=== PATIENT | male | born 1975 | race African-American/Black ===

== ENCOUNTER → 2019-04-11 | Emergency (ER) | payer BC ==
[~2019-04-11] VITALS: Ht 152.4 cm; Wt 76.2 kg
== END | disposition home or self-care (01) ==
LOC: ER 17:49
DX: S61.224A Laceration with foreign body of right ring finger without damage to nail, initial encounter (principal); W25.XXXA Contact with sharp glass, initial encounter; Y93.89 Activity, other specified; Y92.838 Other recreation area as the place of occurrence of the external cause; Y99.8 Other external cause status

== ENCOUNTER 2019-04-21 13:56 | Emergency (ER) | payer BC ==
[~2019-04-21] VITALS: Ht 175.3 cm; Wt 76.2 kg
== END 2019-04-21 16:29 | disposition home or self-care (01) ==
LOC: ER 13:56
DX: Z48.02 Encounter for removal of sutures (principal)